=== PATIENT | female | born 1980 | race Caucasian/White ===

== ENCOUNTER 2018-06-08 05:37 | Day surgery (SDC) | payer OTHER ==
[2018-06-08] MEDS ORDERED: LIDOCAINE 2% (SDV) 5 ML INJ (07:00)
[2018-06-08] MEDS ORDERED: SEVOFLURANE 15 MIN (07:00)
[2018-06-08] MEDS ORDERED: POLYMYXIN/BACITRACIN 1L IRRIG (07:02)
[2018-06-08] MEDS ORDERED: PROPOFOL 20 ML (07:44)
[2018-06-08] MEDS ORDERED: ROCURONIUM 50 MG INJ (07:46)
[2018-06-08] MEDS ORDERED: DEXAMETHASONE 4 MG/ML 5 ML INJ (08:29)
[2018-06-08] MEDS ORDERED: ONDANSETRON 4 MG INJ (08:30)
[2018-06-08] MEDS: BUPIVACAINE 0.5% (SDV) 30 ML INJ (08:39)
[2018-06-08] MEDS ORDERED: CEFAZOLIN 1 GM INJ (09:43)
[2018-06-08] MEDS ORDERED: HYDROmorphONE 1 MG/5 ML IV SYRINGE IV ×3 (09:54→10:00)
[2018-06-08] MEDS ORDERED: hydrALAzine 20 MG INJ IV (10:00)
[2018-06-08] MEDS ORDERED: LABETALOL HCL 20MG INJ IV (10:00)
[2018-06-08] MEDS ORDERED: EPHEDrine SULFATE 50 MG/5 ML SYG IV (10:00)
[2018-06-08] MEDS ORDERED: ONDANSETRON 4 MG INJ IV (10:00)
[2018-06-08] MEDS ORDERED: DIPHENHYDRAMINE 50 MG INJ IV (10:00)
[2018-06-08] MEDS ORDERED: ALBUTEROL 0.083% (NEB) 2.5 MG/3 ML AMP HHN (10:00)
[2018-06-08] MEDS ORDERED: KETOROLAC 30 MG INJ IV (10:00)
[2018-06-08] MEDS ORDERED: FENTAnyl 50 MCG/ML VIAL IV ×3 (10:00)
[2018-06-08] MEDS ORDERED: OXYCODONE/ACETAMINOPHEN (5/325) TAB PO ×2 (10:00)
[2018-06-08] MEDS ORDERED: METOCLOPRAMIDE 10 MG INJ IV (10:00)
[2018-06-08] MEDS ORDERED: MEPERIDINE 25 MG INJ IV (10:00)
[2018-06-08] MEDS: HYDROmorphONE 1 MG/5 ML IV SYRINGE IV (10:26)
== END 2018-06-08 11:55 | disposition home or self-care (01) ==
LOC: SDS 05:37
DX: M13.872 Other specified arthritis, left ankle and foot (principal); D16.32 Benign neoplasm of short bones of left lower limb
CPT/HCPCS: 28750; 73630-LT; 84703; 88304; 88311